=== PATIENT | male | born 1960 | race Caucasian/White ===

== ENCOUNTER 2018-01-15 10:43 | Day surgery (SDC) | payer OTHER ==
[2018-01-15] MEDS: BUPIVACAINE 0.5%/EPI (SDV) 30 ML INJ INJ
[2018-01-15] MEDS: POLYMYXIN/BACITRACIN 1L IRRIG
[~2018-01-15 10:43] MED LIST: EPHEDrine SULFATE 50 MG/5 ML SYG
[2018-01-15] MEDS ORDERED: SOD CHLORIDE 0.9% 1,000 ML IV (11:00)
[2018-01-15] MEDS ORDERED: CEFAZOLIN 2 GM/50 ML (PMX) 50 ML IVPB (11:00)
[2018-01-15] MEDS ORDERED: PROPOFOL 20 ML (12:19)
[2018-01-15] MEDS ORDERED: MIDAZOLAM 1 MG/ML 2 ML INJ (12:19)
[2018-01-15] MEDS ORDERED: ROPIVACAINE 0.5 % 30 ML VIAL (12:19)
[2018-01-15] MEDS ORDERED: ROCURONIUM 50 MG INJ ×2 (12:19→14:02)
[2018-01-15] MEDS ORDERED: CEFAZOLIN 1 GM INJ (12:19)
[2018-01-15] MEDS ORDERED: LABETALOL HCL 20MG INJ IV (12:30)
[2018-01-15] MEDS ORDERED: FENTAnyl 50 MCG/ML VIAL IV ×3 (12:30)
[2018-01-15] MEDS ORDERED: hydrALAzine 20 MG INJ IV (12:30)
[2018-01-15] MEDS ORDERED: HYDROmorphONE (0.2 MG/ML) 10ML SYG IV ×2 (12:30)
[2018-01-15] MEDS ORDERED: ONDANSETRON 4 MG INJ IV ×2 (12:30→16:00)
[2018-01-15] MEDS ORDERED: OXYCODONE/ACETAMINOPHEN (5/325) TAB PO ×2 (12:30)
[2018-01-15] MEDS ORDERED: MEPERIDINE 25 MG INJ IV (12:30)
[2018-01-15] MEDS ORDERED: DIPHENHYDRAMINE 50 MG INJ IV (12:30)
[2018-01-15] MEDS ORDERED: METOCLOPRAMIDE 10 MG INJ IV (12:30)
[2018-01-15] MEDS ORDERED: EPHEDrine SULFATE 50 MG/5 ML SYG IV (12:30)
[2018-01-15] MEDS ORDERED: PHENYLephrine (100 MCG/ML) 5ML SYG (13:35)
[2018-01-15] MEDS ORDERED: KETOROLAC 30 MG INJ (14:17)
[2018-01-15] MEDS ORDERED: METOCLOPRAMIDE 10 MG INJ (14:17)
[2018-01-15] MEDS ORDERED: ACETAMINOPHEN 1000MG/100ML IV 100 ML (14:17)
[2018-01-15] MEDS ORDERED: DEXAMETHASONE 4 MG/ML 1 ML INJ (14:17)
[2018-01-15] MEDS ORDERED: ONDANSETRON 4 MG INJ (14:17)
[2018-01-15] MEDS ORDERED: SUGAMMADEX SODIUM 200 MG/2 ML VIAL IV (14:17)
[2018-01-15] MEDS: HYDROmorphONE (0.2 MG/ML) 10ML SYG IV ×2 (15:57→16:05)
[2018-01-15] MEDS ORDERED: HYDROCODONE/APAP (5/325) TAB PO ×2 (16:00)
[2018-01-15] MEDS ORDERED: morphine 2 MG INJ IV (16:00)
[2018-01-15] MEDS ORDERED: KETOROLAC 30 MG INJ IV (16:00)
[2018-01-15] MEDS ORDERED: IBUPROFEN 600 MG TAB PO (16:00)
== END 2018-01-15 17:29 | disposition home or self-care (01) ==
LOC: SDS 10:43
DX: K40.90 Unilateral inguinal hernia, without obstruction or gangrene, not specified as recurrent (principal); I10 Essential (primary) hypertension
CPT/HCPCS: 49505

== ENCOUNTER 2018-01-24 08:43 | Emergency (ER) | payer OTHER | END 2018-01-24 10:25 | disposition home or self-care (01) | LOC: FTE 08:43 | DX: K91.840 Postprocedural hemorrhage of a digestive system organ or structure following a digestive system procedure (principal); I10 Essential (primary) hypertension; F17.210 Nicotine dependence, cigarettes, uncomplicated | CPT/HCPCS: 74176; 99284-25 ==